=== PATIENT | male | born 1970 | race Caucasian/White ===

== ENCOUNTER 2017-03-24 03:05 | Emergency (ER) | payer MEDICAID ==
[2017-03-24] MEDS: METHYLPREDNISOLONE 125 MG INJ IM (04:32)
[2017-03-24] MEDS: ALBUTEROL 0.5% (NEB) 2.5 MG/0.5 ML AMP INH (04:43)
[2017-03-24] MEDS: IPRATROPIUM (NEB) 0.5 MG/2.5 ML AMP NEB (04:43)
== END 2017-03-24 06:16 | disposition home or self-care (01) ==
LOC: FTE 03:05
DX: J20.9 Acute bronchitis, unspecified (principal)
CPT/HCPCS: 94644; 96372; 99284-25

== ENCOUNTER 2018-04-14 12:35 | Emergency (ER) | payer OTHER, MEDICAID ==
[2018-04-14] MEDS: METHYLPREDNISOLONE 125 MG INJ IM (14:47)
[2018-04-14] MEDS: IPRATROPIUM (NEB) 0.5 MG/2.5 ML AMP INH (14:49)
[2018-04-14] MEDS: LEVALBUTEROL (NEB) 1.25 MG/0.5 ML AMP INH (14:49)
== END 2018-04-14 16:22 | disposition home or self-care (01) ==
LOC: FTE 12:35
DX: R06.2 Wheezing (principal)
CPT/HCPCS: 71045; 94644; 96372; 99284-25